=== PATIENT | male | born 1975 | race African-American/Black ===

== ENCOUNTER 2017-04-24 14:38 | Emergency (ER) | payer MEDICAID ==
[~2017-04-24] VITALS: Ht 170.2 cm; Wt 91.0 kg
[~2017-04-24 14:38] MED LIST: ERYT.5%O EACH EYE; Z.0.NO CURRENT MEDS
[2017-04-24 14:42] VITALS: BP 157/92; PULSE 70; RESP 16; TEMP 98.4; O2SAT 97
[2017-04-24] MEDS ORDERED: SELE2.5%T TOPICAL (15:45)
[2017-04-24] MEDS ORDERED: AMOX875T PO (15:45)
[2017-04-24] MEDS ORDERED: FLUT1SPR5 EACH NARE (15:45)
--- NOTE | 2017-04-24 15:54 | PD ---
HPI Chief Complaint: Headache Time Seen by Provider: 15:39 Travel History International Travel<30 days: No Contact w/Intl Traveler<30days: No Traveled to known affect area: No History of Present Illness HPI 41-year-old -Citizen Of [place] male presents emergency department with almost 2 week history of upper respiratory symptoms would start was sinus head cold, which improved but he continues to have chronic headaches and occasional postnasal drip. Patient denies numbness, tingling, or other neurological symptoms. No nausea or vomiting headaches wax and wane in about a 6 out of 10 patient also has some bilateral ear pressure and pain bilaterally. Patient is a secondary complaint of tinea versicolor which she is requesting a refill of his selenium sulfide topical lotion. Patient denies significant fever, chills, or other constitutional symptoms. Patient has no known drug allergies. PFSH Past Medical History GERD: Yes Social History Alcohol Use: No Tobacco Use: No Substance Use: No Allergies-Medications (Allergen,Severity, Reaction): Coded Allergies: No Known Allergies (Verified Adverse Reaction, Unknown, 04/24/17) Reported Meds & Prescriptions Reported Meds & Active Scripts Active Flonase Nasal [place] (Fluticasone Nasal [place]) 50 Mcg/Act [place] 100 Mcg EACH NARE BID Amoxicillin 875 Mg Tab 875 Mg PO BID Selenium Sulfide Topical 2.5% (Selenium Sulfide) 2.5 % Lotn 1 Applic TOPICAL 2XWEEK Ilotycin (Erythromycin) 3.5 Gm Oint 1 Dose EACH EYE QID 7 Days Reported No Current Meds (Miscellaneous Medication) Misc Review of Systems Except as stated in HPI: all other systems reviewed are Neg General / Constitutional: No: Fever, Chills Eyes: No: Visual changes HENT: Positive: Headaches, Sore Throat, Rhinitis, Rhinorrhea, Congestion, Earache, No: Vertigo, Lightheadedness, Nosebleed, Neck Stiffness, Neck Pain, Dental Difficulties, Ear Discharge Cardiovascular: No: Chest Pain or Discomfort Respiratory: No: Cough, Shortness of Breath, Wheezing, Sneezing Gastrointestinal: No: Nausea, Vomiting, Diarrhea, Abdominal Pain Genitourinary: No: Dysuria Musculoskeletal: No: Pain Skin: Positive Rash, No Itching, No Dryness Neurologic: No: Weakness Psychiatric: No: Depression Endocrine: No: Polydipsia Hematologic/Lymphatic: No: Easy Bruising Physical Exam Narrative GENERAL: Patient appears in no acute distress per SKIN: Warm and dry. Normal color. Normal turgor. Patient has mild tinea versicolor to his back. HEAD: Atraumatic. Normocephalic. Mild to moderate maxillary sinus tenderness bilaterally EYES: Pupils equal and round. No scleral icterus. No injection or drainage. ENT: No nasal bleeding or discharge. Mucous membranes pink and moist. Posterior pharynx appears mildly injected with cobblestoning and yellow postnasal drip noted. Both TMs have pressure behind them with what appears to be purulent mucus behind and dullness to both TMs. There is no injection. NECK: Trachea midline. Supple and nontender. CARDIOVASCULAR: Regular rate and rhythm. RESPIRATORY: No accessory muscle use. Clear to auscultation. Breath sounds equal bilaterally. MUSCULOSKELETAL: Extremities without clubbing, cyanosis, or edema. No obvious deformities. NEUROLOGICAL: Awake and alert. No obvious cranial nerve deficits. Motor grossly within normal limits. Five out of 5 muscle strength in the arms and legs. Normal speech. PSYCHIATRIC: Appropriate mood and affect; insight and judgment normal. Data Data Last Documented VS Vital Signs Date Time Temp Pulse Resp B/P (MAP) Pulse Ox O2 Delivery O2 Flow Rate FiO2 04/24/17 14:42 98.4 70 16 157/92 (113) 97 MDM Medical Decision Making Medical Screen Exam Complete: Yes Emergency Medical Condition: Yes Differential Diagnosis Sinusitis. Congestion. Tinea versicolor. Narrative Course Patient is felt to have chronic sinusitis as well as tinea versicolor Patient will be treated with amoxicillin 875 twice daily 10 days. Patient also given Flonase nasal spray 2 sprays each nostril daily. Patient is given a refill of his selenium sulfide topical 2.5% lotion with 2 refills. Patient can try [id number] antiallergy medications as well. Patient can take Tylenol or ibuprofen as needed for headache. Patient to follow-up with primary care physician as needed. Diagnosis Primary Impression: Sinusitis, acute Qualified Codes: J01.20 - Acute ethmoidal sinusitis, unspecified Additional Impression: Tinea versicolor Referrals: Primary Care Physician Patient Instructions: General Instructions, Sinusitis (ED), Tinea Versicolor ( ED) Med/Other Pt SpecificInfo: Prescription(s) given Scripts Fluticasone Nasal [place] (Flonase Nasal [place]) 50 Mcg/Act [place] 100 MCG EACH NARE BID for Allergies, #1 BOTTLE 0 Refills Prov: OkeefeJesusita DO 04/24/17 Amoxicillin (Amoxicillin) 875 Mg Tab 875 MG PO BID for Infection, #20 TAB 0 Refills Prov: OkeefeJesusita DO 04/24/17 Selenium Sulfide Topical 2.5% (Selenium Sulfide Topical 2.5%) 2.5 % Lotn 1 APPLIC TOPICAL 2XWEEK, #1 BOTTLE 2 Refills Prov: OkeefeJesusita DO 04/24/17 Disposition: 01 DISCHARGE HOME Condition: Stable Mario Mccord Apr 24, 2017 15:54
== END 2017-04-24 16:10 | disposition home or self-care (01) ==
LOC: NEPD 14:38
DX: J01.90 Acute sinusitis, unspecified (principal); B36.0 Pityriasis versicolor; K21.9 Gastro-esophageal reflux disease without esophagitis
CPT/HCPCS: 99283